=== PATIENT | female | born 1945 | race Two or more races ===

== ENCOUNTER 2021-02-01 22:09 | Emergency (ER) | payer OTHER ==
[~2021-02-01] VITALS: Ht 149.9 cm; Wt 56.7 kg
[~2021-02-01 22:09] MED LIST: ANASTROZOLE1 MG; BENZONATATE200 M1; CLARITHROMYCIN500 MG; ELIQUIS2.5 MG; FOSAMAX70 MG; INTESTINEX680 MG PO; METOPROLOL SUCC25 MG; RANITIDINE HCL150 M1; TUSSI PRES-B L120 M1 PO
[2021-02-01] MEDS ORDERED: TOPROL XL50 M1 (22:47)
[2021-02-01] MEDS ORDERED: ELIQUIS5 M1 (22:47)
[2021-02-02] MEDS ORDERED: INTESTINEX680 M2 PO (02:53)
[2021-02-02] MEDS ORDERED: ONDANSETRON HCL4 MG PO (02:53)
[2021-02-02] MEDS ORDERED: PEPCID AC20 MG PO (02:53)
== END 2021-02-02 03:38 | disposition home or self-care (01) ==
LOC: ER 22:09
DX: E86.0 Dehydration (principal); E87.8 Other disorders of electrolyte and fluid balance, not elsewhere classified; R11.2 Nausea with vomiting, unspecified

== ENCOUNTER 2023-09-23 07:50 | Emergency (ER) | payer OTHER ==
[~2023-09-23] VITALS: Ht 149.9 cm; Wt 56.7 kg
[~2023-09-23 07:50] MED LIST changes: +ELIQUIS5 M1; +INTESTINEX680 M2 PO; +ONDANSETRON HCL4 MG PO; +PEPCID AC20 MG PO; +TOPROL XL50 M1
== END 2023-09-23 11:12 | disposition home or self-care (01) ==
LOC: ER 07:50
DX: S09.8XXA Other specified injuries of head, initial encounter (principal); X58.XXXA Exposure to other specified factors, initial encounter; Y93.89 Activity, other specified; Y92.89 Other specified places as the place of occurrence of the external cause; Y99.8 Other external cause status; I10 Essential (primary) hypertension; Z91.041 Radiographic dye allergy status

== ENCOUNTER 2024-05-13 08:00 | Emergency (ER) | payer OTHER ==
[~2024-05-13] VITALS: Ht 149.9 cm; Wt 58.1 kg
[2024-05-13] MEDS ORDERED: ACETAMINOPHEN 500 MG GEL..CAP PO ONE (09:42)
[2024-05-13] MEDS ORDERED: ONDANSETRON HCL 2 MG/ML VIAL ONE (09:42)
[2024-05-13] MEDS ORDERED: ONDANSETRON HCL 2 MG/ML VIAL IV STA (10:06)
[2024-05-13] MEDS ORDERED: ONDANSETRON HCL 2 MG/ML VIAL IV ONE (10:15)
[2024-05-13 10:25] LABS: HEMOGLOBIN 13.1 g/dL (12.0-15.00); MEAN CORPUSCULAR HEMOGLOBIN 32.1 pg (27.00-32.0); MEAN CORPUSCULAR HGB CONC 34.6 g/dl (32.0-36.0); PLATELET COUNT 184 K/uL (150-450); RED BLOOD COUNT 4.08 M/uL (4.00-6.00)
[2024-05-13] MEDS ORDERED: CEFTRIAXONE SODIUM 1,000 MG VIAL IM STA (12:28)
[2024-05-13] MEDS ORDERED: DEXAMETHASONE SODIUM PHOSPHATE 4 MG/ML VIAL IM STA (12:28)
[2024-05-13] MEDS ORDERED: DEXAMETHASONE SODIUM PHOSPHATE 4 MG/ML VIAL ONE (12:38)
[2024-05-13] MEDS ORDERED: CEFTRIAXONE SODIUM 1,000 MG VIAL ONE (12:39)
[2024-05-13] MEDS ORDERED: LIDOCAINE HCL 1% 10ML VIAL ONE (12:39)
== END 2024-05-13 13:57 | disposition home or self-care (01) ==
LOC: ER 08:01
PROVIDERS: General Practice
DX: R53.81 Other malaise (principal); J06.9 Acute upper respiratory infection, unspecified; Z20.822 Contact with and (suspected) exposure to COVID-19; Z91.041 Radiographic dye allergy status
CPT/HCPCS: 36415; 96365; 96372; 99282; J0696; J1100; J2405